=== PATIENT | male | born 1950 | race Caucasian/White ===

== ENCOUNTER 2016-10-05 13:32 | Outpatient (CLI) | payer OTHER | END 2016-10-05 13:33 | disposition home or self-care (01) | DX: G47.33 Obstructive sleep apnea (adult) (pediatric) (principal) ==

== ENCOUNTER 2017-01-17 09:17 | Outpatient (CLI) | payer OTHER | END 2017-01-17 09:18 | disposition home or self-care (01) | DX: G47.33 Obstructive sleep apnea (adult) (pediatric) (principal) ==

== ENCOUNTER 2017-03-08 14:16 | Outpatient (CLI) | payer OTHER | END 2017-03-08 14:17 | disposition home or self-care (01) | LOC: SC 14:16 | PROVIDERS: ATTEND Nurse Practitioner Family | DX: G47.33 Obstructive sleep apnea (adult) (pediatric) (principal) | CPT/HCPCS: 99212; 99214 ==

== ENCOUNTER 2017-05-12 10:46 | Outpatient (CLI) | payer OTHER | END 2017-05-12 10:47 | disposition home or self-care (01) | LOC: SC 10:46 | PROVIDERS: ATTEND Nurse Practitioner Family | DX: G47.33 Obstructive sleep apnea (adult) (pediatric) (principal) | CPT/HCPCS: 99212; 99214 ==

== ENCOUNTER 2017-06-13 13:29 | Outpatient (CLI) | payer OTHER | END 2017-06-13 13:30 | disposition home or self-care (01) | LOC: SC 13:29 | PROVIDERS: ATTEND Nurse Practitioner Family | DX: G47.33 Obstructive sleep apnea (adult) (pediatric) (principal) | CPT/HCPCS: 99212; 99213 ==

== ENCOUNTER 2017-08-09 13:20 | Outpatient (CLI) | payer OTHER | END 2017-08-09 13:21 | disposition home or self-care (01) | LOC: SC 13:20 | PROVIDERS: ATTEND Nurse Practitioner Family | DX: G47.33 Obstructive sleep apnea (adult) (pediatric) (principal) | CPT/HCPCS: 99212; 99215 ==

== ENCOUNTER 2017-09-22 13:53 | Outpatient (CLI) | payer OTHER | END 2017-09-22 13:54 | disposition home or self-care (01) | LOC: SC 13:53 | PROVIDERS: ATTEND Nurse Practitioner Family | DX: G47.33 Obstructive sleep apnea (adult) (pediatric) (principal) | CPT/HCPCS: 99212; 99214 ==

== ENCOUNTER 2017-11-24 13:22 | Outpatient (CLI) | payer OTHER | END 2017-11-24 13:23 | disposition home or self-care (01) | LOC: SC 13:22 | PROVIDERS: ATTEND Nurse Practitioner Family | DX: G47.33 Obstructive sleep apnea (adult) (pediatric) (principal); I10 Essential (primary) hypertension; I51.9 Heart disease, unspecified | CPT/HCPCS: 99214 ==

== ENCOUNTER 2017-12-21 22:45 | Outpatient (CLI) | payer OTHER | END 2017-12-21 22:46 | disposition home or self-care (01) | LOC: SC 22:45 | PROVIDERS: ATTEND Internal Medicine Pulmonary Disease | DX: G47.33 Obstructive sleep apnea (adult) (pediatric) (principal); G47.61 Periodic limb movement disorder | CPT/HCPCS: 95811 ==

== ENCOUNTER 2018-02-13 10:08 | Outpatient (CLI) | payer OTHER | END 2018-02-13 10:09 | disposition home or self-care (01) | LOC: SC 10:08 | PROVIDERS: ATTEND Internal Medicine Pulmonary Disease | DX: G47.33 Obstructive sleep apnea (adult) (pediatric) (principal) | CPT/HCPCS: 99212; 99213 ==

== ENCOUNTER 2018-05-01 09:16 | Outpatient (CLI) | payer MEDICARE, OTHER | END 2018-05-01 09:17 | disposition home or self-care (01) | LOC: SC 09:16 | PROVIDERS: ATTEND Internal Medicine Pulmonary Disease | DX: G47.33 Obstructive sleep apnea (adult) (pediatric) (principal) | CPT/HCPCS: 99213; G0463; 99212 ==

== ENCOUNTER 2019-09-27 06:43 | Outpatient (CLI) | payer MEDICARE, OTHER ==
--- NOTE | 2019-09-27 07:44 | Ultrasound Report ---
Reason: SCREENING FOR CARDIOVASCULAR DISORDERS Procedure Date: 09/27/2019 Accession Number: [id number] / [id number] Procedure: US - Aorta Screening CPT Code: Final Report FULL RESULT: EXAM: AORTIC DOPPLER ULTRASOUND EXAM DATE: 09/27/2019 06:48 AM. CLINICAL HISTORY: Screening for cardiovascular disorders. COMPARISON: None. TECHNIQUE: Real-time sonographic imaging of retroperitoneal vascular structures, including color-flow, Doppler flow and spectral analysis was performed by the sugar mill worker. Multiple equal opportunity representative static images were saved for review. FINDINGS: Aorta: The abdominal aorta was adequately visualized. No evidence for abdominal aortic aneurysm. Aorta: Proximal: Sagittal AP 2.5 cm. Mid: Transverse 2.1 x 2.2 cm. Distal: Transverse 2.0 x 2.1 cm. Caliber: WNL: Yes. Plaque visualized: Yes. Iliacs: Right Iliac: Transverse 1.4 x 1.4 cm. Left Iliac: Transverse 1.3 x 1.3 cm. Iliac Vessels: The visualized proximal common iliac arteries measure up to 1.4 cm transversely. Other: None. IMPRESSION: . No abdominal aortic aneurysm. RADIA
== END 2019-09-27 06:44 | disposition home or self-care (01) ==
LOC: DI 06:43
PROVIDERS: ATTEND Internal Medicine
DX: Z13.6 Encounter for screening for cardiovascular disorders (principal)
CPT/HCPCS: 76706

== ENCOUNTER 2019-10-30 17:00 | Outpatient (CLI) | payer MEDICARE, OTHER ==
--- NOTE | 2019-10-30 13:14 | SLEEP CARE CONSULTATION ---
Information from patient questionnaire entered by Jaylin Massey. I have reviewed and concur with the information entered by Jaylin Massey. This document represents the service I personally performed and the decisions made by me, Arsalan Portillo MD, [facility]. History of Present Illness Service Date and Time: 10/30/2019 1300 Previous diagnosis: Moderate, Obstructive Sleep Apnea-Hypopnea Syndrome AHI: 26.6 Reason for follow up: first compliance after device update, annual HPI additional information: To minimize the risk of COVID-19 exposure, the patient has requested and consented to this video telemedicine visit. The patient also agrees to having his insurance billed. HPI: Mr. Boucher was called today to follow up on the nasal CPAP therapy. He was diagnosed to have moderate obstructive sleep apnea-hypopnea syndrome. The patient wears a ResMed F20 full face mask. He continues to use the device nightly and all through the night. The compliance report shows usage in 29 nights out of the past 30 nights, averaging 7.3 hours a night. The > 4 hour compliance rate for the past 30 days is 97%. He complained of the mask hurting the bridge of his nose. He thinks that the pressure of 14 20 cmH2O is comfortable. On the CPAP therapy he notices improvement in his sleep quality, and that he wakes up feeling fresher in the morning and more awake/alert during the day. The average residual AHI is 2.6; and average air leak 2 L/minute. The 90th percentile pressure is 18.9 cmH2O. Allergies and Home Medications Drug allergies reviewed: Yes Home medication list reviewed: Yes Review of Systems Review of systems same as previous: Yes Physical Exam Height: 5 ft 11 in Impression and Plan IMPRESSION: 1. Obstructive Sleep Apnea-Hypopnea Syndrome, moderate, with the patient doing well on nasal CPAP therapy. He has excellent compliance and significant clinical improvement. The current pressure appears effective and comfortable. His mask hurts his nose. Overall, he is very satisfied with treatment and plans to continue with it long-term. He would like to switch away from [facility]. PLAN: 1. Continue with autoCPAP set at 14 - 20 cmH2O. 2. Try to lose weight 3. Try other full face masks that do not go over the bridge of his nose, e.g. F- 30, DreamWear full face, and AmaraView full face mask. 4. Prescription made for supplies so that he can [employer]. 5. Return in one year for follow up or earlier if there is any problem with the treatment. Visit Type: Telehealth Video Video Type: [place] Patient Location: Home Location of Provider: Home Patient agrees and consents to this telehealth visit type: Yes Time Spent with Patient (minutes): 15 Provider Statement: I spent 100% of the Telehealth Video Call with the patient with greater than 50% spent counseling the patient and coordination of care.
== END 2019-10-30 17:01 | disposition home or self-care (01) ==
LOC: SC 17:00
PROVIDERS: ATTEND Internal Medicine Pulmonary Disease
DX: G47.33 Obstructive sleep apnea (adult) (pediatric) (principal)

== ENCOUNTER 2020-08-11 11:31 | Outpatient (CLI) | payer MEDICARE, OTHER ==
--- NOTE | 2020-08-11 12:46 | SLEEP CARE CONSULTATION ---
Information from patient questionnaire entered by Beth Thacker. I have reviewed and concur with the information entered by Beth Thacker. This document represents the service I personally performed and the decisions made by me, Arsalan Portillo MD, [facility]. History of Present Illness Service Date and Time: 08/11/2020 1131 Previous diagnosis: Moderate, Obstructive Sleep Apnea-Hypopnea Syndrome AHI: 26.6 (in 2009) Reason for follow up: other (10 month) Equipment type: CPAP Equipment obtained from: [email or web address] Mask style: Full face Mask brand: Resmed Prior sleep studies: Yes Year and Where: 2009 - [facility] Sleep Type of Sleep Study: Polysomnography HPI additional information: HPI: Mr. Boucher was diagnosed to have moderate obstructive sleep apnea-hypopnea syndrome and returns today for follow up of CPAP therapy. The patient purchased the device from [email or web address] in [place] and was fitted with a full face mask. He has changed him mask from a [employer] full face mask to ResMed AirFit F20. He wears a full face mask because he breaths through his mouth most of the time. He continues to use the device nightly and all through the night. The compliance report shows that he uses the device 180 nights out of the past 180 nights, averaging 7.2 hours a night. He complains of right sided headache. He thinks that the pressure of 14 - 20 cmH2O is comfortable. On the CPAP therapy he notices improvement in his sleep quality, and that he wakes up feeling fresher in the morning and more awake/alert during the day. His notices no snore at all. [place] Sleepiness Scale score is 4. The average residual AHI is 7.8; and average time in large leak per day is 6 L/minute. The 90th percentile pressure is 19.9 cmH2O. CPAP Compliance Data - Data Reviewed with Patient Average duration of nightly device use: 7 hr 10 min Compliance rate %: 99 (180 days) Current pressure setting (cmH2O): 14-20 Average residual AHI: 7.8 Subjective Patient concerns: reports: mask discomfort, dry mouth, nose, throat Current pressure setting perceived as: comfortable Initial [place] Sleepiness Scale score: 4 (in 2017) Current [place] Sleepiness Scale score: 4 Allergies and Home Medications Drug allergies reviewed: Yes Home medication list reviewed: Yes Review of Systems Review of systems same as previous: Yes Physical Exam Vital signs obtained and entered by: To minimize the risk of COVID-19 exposure, detailed exam was not performed. Height: 5 ft 11 in Weight: 242 lb Body Mass Index: 33.7 BMI Classification: Obese Impression and Plan IMPRESSION: 1. Obstructive Sleep Apnea-Hypopnea Syndrome, moderate, with the patient continuing to do well on nasal CPAP therapy except for the headache which seems to be aggravated by the headgear. He has excellent compliance and significant clinical benefits. I recommend he try a ResMed F30 full face mask (he tried [employer] DreamWear full face mask but it hurt his nose). I will also lower the pressure range so that he would not have to tighten the mask too much. We also discussed alternative treatment optionsoral appliance therapy and Inspire therapy (hypoglossal nerve stimulation). PLAN: 1. AutoCPAP lowered to 8 - 14 cm H2O manually on the device. 2. Try to lose weight 3. Consider being evaluated for the Inspire therapy. Information provided. 4. Return in one month to recheck the efficacy of the lower pressure. Visit Type: In Office Provider Statement: I spent 100% of the Face to Face Visit with the patient with greater than 50% spent counseling the patient and coordination of care.
== END 2020-08-11 11:32 | disposition home or self-care (01) ==
LOC: SC 11:31
PROVIDERS: ATTEND Internal Medicine Pulmonary Disease
DX: G47.33 Obstructive sleep apnea (adult) (pediatric) (principal); E66.9 Obesity, unspecified; Z68.33 Body mass index [BMI] 33.0-33.9, adult
CPT/HCPCS: 99213; G0463; 99212

== ENCOUNTER 2020-09-22 10:14 | Outpatient (CLI) | payer MEDICARE, OTHER ==
--- NOTE | 2020-09-22 10:47 | SLEEP CARE CONSULTATION ---
Information from patient questionnaire entered by Beth Thacker. I have reviewed and concur with the information entered by Beth Thacker. This document represents the service I personally performed and the decisions made by me, Arsalan Portillo MD, [facility]. History of Present Illness Service Date and Time: 09/22/2020 1014 Previous diagnosis: Moderate, Obstructive Sleep Apnea-Hypopnea Syndrome AHI: 26.6 (in 2009) Reason for follow up: one month (with pressure change) Equipment type: CPAP Equipment obtained from: [facility] Mask style: Full face Prior sleep studies: Yes Year and Where: 2009 - [facility] Sleep Type of Sleep Study: Polysomnography HPI additional information: HPI: Mr. Boucher was diagnosed to have moderate obstructive sleep apnea-hypopnea syndrome and returns today for follow up of CPAP therapy after the pressure was lowered from 14 20 cmH2O to 8 14 cmH2O so that he would not have to wear the mask tightly and not have the headache. The patient purchased the device from [employer] in [place] and was fitted with a full face mask. He wears a full face mask because he breaths through his mouth most of the time. He continues to use the device nightly and all through the night. The compliance report shows that he uses the device 30 nights out of the past 30 nights, averaging 7.0 hours a night. He complains of right sided headache. He thinks that the pressure of 14 - 20 cmH2O is much more comfortable. The headache went away. On the CPAP therapy he notices improvement in his sleep quality, and that he wakes up feeling fresher in the morning and more awake/alert during the day. His notices no snore at all. [place] Sleepiness Scale score is 4. The average residual AHI is 11.5 (was 7.8); and average time in large leak per day is 1.9 (was 6)L/minute. The 90th percentile pressure is 13.9 cmH2O. CPAP Compliance Data - Data Reviewed with Patient Average duration of nightly device use: 7 Compliance rate %: 100 Current pressure setting (cmH2O): 8-14 Average residual AHI: 11.5 Subjective Current pressure setting perceived as: comfortable Initial [place] Sleepiness Scale score: 4 (in 2017) Current [place] Sleepiness Scale score: 2 Allergies and Home Medications Drug allergies reviewed: Yes Home medication list reviewed: Yes Review of Systems Review of systems same as previous: Yes Physical Exam Height: 5 ft 11 in Weight: 242 lb Body Mass Index: 33.7 BMI Classification: Obese Impression and Plan IMPRESSION: 1. Obstructive Sleep Apnea-Hypopnea Syndrome, moderate, with the patient continuing to do well on nasal CPAP therapy except for the headache which seems to be aggravated by the headgear. He has excellent compliance and significant clinical benefits. I recommend he try a ResMed F30 full face mask (he tried [employer] DreamWear full face mask but it hurt his nose). I will also lower the pressure range so that he would not have to tighten the mask too much. We also discussed alternative treatment optionsoral appliance therapy and Inspire therapy (hypoglossal nerve stimulation). PLAN: 1. AutoCPAP raised to 10 - 15 cm H2O manually on the memory card. 2. Try to lose weight 3. Consider being evaluated for the Inspire therapy. Information provided. 4. Return in one month to recheck the efficacy of the lower pressure. Counseling Topics: Weight control Visit Type: In Office Time Spent with Patient (minutes): 15 Provider Statement: I spent 100% of the Face to Face Visit with the patient with greater than 50% spent counseling the patient and coordination of care.
== END 2020-09-22 10:15 | disposition home or self-care (01) ==
LOC: SC 10:14
PROVIDERS: ATTEND Internal Medicine Pulmonary Disease
DX: G47.33 Obstructive sleep apnea (adult) (pediatric) (principal); E66.9 Obesity, unspecified; Z68.33 Body mass index [BMI] 33.0-33.9, adult
CPT/HCPCS: 99212; G0463

== ENCOUNTER 2020-11-24 09:08 | Outpatient (CLI) | payer MEDICARE, OTHER ==
--- NOTE | 2020-11-26 12:24 | SLEEP CARE CONSULTATION ---
Information from patient questionnaire entered by Beth Thacker. I have reviewed and concur with the information entered by Beth Thacker. This document represents the service I personally performed and the decisions made by me, Arsalan Portillo MD, [facility]. History of Present Illness Service Date and Time: 11/24/2020 0908 Previous diagnosis: Moderate, Obstructive Sleep Apnea-Hypopnea Syndrome AHI: 26.6 (in 2009) Reason for follow up: other (2 month fu) Equipment type: CPAP Equipment obtained from: [facility] Mask style: Full face Prior sleep studies: Yes Year and Where: 2009 - [facility] Sleep Type of Sleep Study: Polysomnography HPI additional information: HPI: Mr. Boucher was diagnosed to have moderate obstructive sleep apnea-hypopnea syndrome and returns today for follow up of CPAP therapy after the pressure was raised partially back up to 10 - [id number] for elevated residual AHI of 11.3 (lowered from 14 20 to 8 14 cmH2O earlier for his headache). The patient says his headache is almost gone but he also had a surgery to repair his root canal problem. He will also see a neurosurgeon soon. The residual AHI today went up to 13.3. CPAP Compliance Data - Data Reviewed with Patient Average duration of nightly device use: 7 hr 3 min Compliance rate %: 100 (60 days) Current pressure setting (cmH2O): 10-15 Average residual AHI: 13.3 Subjective Patient concerns: reports: dry mouth, nose, throat Current pressure setting perceived as: comfortable Initial [place] Sleepiness Scale score: 4 (in 2017) Current [place] Sleepiness Scale score: 1 Allergies and Home Medications Drug allergies reviewed: Yes Home medication list reviewed: Yes Review of Systems Review of systems same as previous: Yes Physical Exam Height: 5 ft 11 in Weight: 242 lb Body Mass Index: 33.7 BMI Classification: Obese Impression and Plan IMPRESSION: 1. Obstructive Sleep Apnea-Hypopnea Syndrome, moderate, with the patient continuing to do well on nasal CPAP therapy. The pressure is not quite effective but higher pressures require him to wear the mask tightly and to develop headache. I will leave the pressure as is. PLAN: 1. AutoCPAP left at 10 - 15 cm H2O 2. Try to lose weight. 3. Return for follow up in a year or earlier if there is any problem. Follow up with Sleep Care in: 1 year Follow up recommended for: Weight management Visit Type: In Office Time Spent with Patient (minutes): 15 Provider Statement: I spent 100% of the Face to Face Visit with the patient with greater than 50% spent counseling the patient and coordination of care.
== END 2020-11-24 09:09 | disposition home or self-care (01) ==
LOC: SC 09:08
PROVIDERS: ATTEND Internal Medicine Pulmonary Disease
DX: G47.33 Obstructive sleep apnea (adult) (pediatric) (principal); E66.9 Obesity, unspecified; Z68.33 Body mass index [BMI] 33.0-33.9, adult
CPT/HCPCS: 99212; G0463

== ENCOUNTER 2021-01-21 15:13 | Outpatient (CLI) | payer MEDICARE, OTHER ==
--- NOTE | 2021-01-21 16:36 | XRAY Report ---
PROCEDURE: Foot 3 View RT INDICATIONS: R FOOT PX TECHNIQUE: 2 views of the foot were acquired. COMPARISON: None FINDINGS: Bones: No fractures or dislocations. No suspicious bony lesions. Soft tissues: No tibiotalar joint effusion. Achilles tendon appears normal. IMPRESSION: No visible fractures. Reviewed by: Jovana Leyva MD on 01/21/2021 4:35 PM PDT Approved by: Jovana Leyva MD on 01/21/2021 4:35 PM PDT Station ID: [id number]
== END 2021-01-21 15:14 | disposition home or self-care (01) ==
LOC: DI.N 15:13
PROVIDERS: ATTEND Physician Assistant
DX: M79.671 Pain in right foot (principal)

== ENCOUNTER 2021-04-30 14:05 | Outpatient (CLI) | payer MEDICARE, OTHER ==
--- NOTE | 2021-05-01 08:23 | XRAY Report ---
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 COMPARISON: None. FINDINGS: SUPPORT DEVICES: None. LUNG/PLEURA: Mildly coarsened interstitial markings. No focal consolidation or pulmonary edema. No pleural effusion or space-occupying pneumothorax. MEDIASTINUM: The cardiomediastinal silhouette is within normal limits. BONES/SOFT TISSUES: No acute abnormality. IMPRESSION: 1.No acute cardiopulmonary abnormality. Reviewed by: Jamie Palomo MD on 05/01/2021 8:22 AM PDT Approved by: Jamie Palomo MD on 05/01/2021 8:22 AM PDT Station ID: [id number]
== END 2021-04-30 14:06 | disposition home or self-care (01) ==
LOC: DI.N 14:05
PROVIDERS: ATTEND Physician Assistant
DX: Z01.818 Encounter for other preprocedural examination (principal); G50.0 Trigeminal neuralgia; G47.33 Obstructive sleep apnea (adult) (pediatric); I25.10 Atherosclerotic heart disease of native coronary artery without angina pectoris

== ENCOUNTER 2021-05-18 16:42 | Outpatient (CLI) | payer MEDICARE, OTHER | END 2021-05-18 16:43 | disposition home or self-care (01) | LOC: COV 16:42 | PROVIDERS: ATTEND Neurological Surgery | DX: Z01.812 Encounter for preprocedural laboratory examination (principal); G50.0 Trigeminal neuralgia; Z20.822 Contact with and (suspected) exposure to COVID-19 ==

== ENCOUNTER 2021-10-19 14:25 | Outpatient (CLI) | payer MEDICARE, OTHER ==
[2021-10-19 22:47] VITALS: BP 143/97
--- NOTE | 2021-10-19 22:47 | SLEEP CARE CONSULTATION ---
Information from patient questionnaire entered by Henri Whitehead MA. I have reviewed and concur with the information entered by Henri Whitehead MA. This document represents the service I personally performed and the decisions made by me, Arsalan Portillo MD, [facility]. History of Present Illness Service Date and Time: 10/19/2021 1425 Previous diagnosis: Moderate, Obstructive Sleep Apnea-Hypopnea Syndrome AHI: 26.6 (in 2009) Reason for follow up: other (9 MONTH F/U , RESMED, ) Equipment type: CPAP Equipment obtained from: [facility] Mask style: Full face Prior sleep studies: Yes Year and Where: 2009 - [facility] Sleep Type of Sleep Study: Polysomnography HPI additional information: Mr. Boucher was diagnosed 4 years ago to have moderate obstructive sleep apnea- hypopnea syndrome and returns today for a follow up of CPAP therapy. He actually quit using his CPAP several months ago because he had a brain surgery and the wound was right underneath the CPAP strap. The surgery was also complicated by CSF leak. He would like to try oral appliance therapy. He has been to [facility] [place] and was informed that he needs a new sleep study and a prescription for a mandibular advancing device. Sleep Study - Results Type of Sleep Study: Polysomnography Prior sleep studies: Yes Year and Where: 2009 - [facility] Sleep CPAP Compliance Data - Data Reviewed with Patient Average duration of nightly device use: 7 HOURS 13 MINUTES Compliance rate %: 69 Current pressure setting (cmH2O): 14-20 Average residual AHI: 3.3 Central apnea: .6 Obstructive apnea: 1.4 Average large leak: 13.4 Subjective Initial [place] Sleepiness Scale score: 4 (in 2016) Current [place] Sleepiness Scale score: 4 (2021) Allergies and Home Medications Known drug allergies: No Drug allergies reviewed: Yes Home medication list reviewed: Yes Allergy and home medication list: Allergies No Known Drug Allergies Allergy (Verified 11/27/15 15:52) Review of Systems Review of systems same as previous: Yes (BRAIN SURG. 05/2021) Physical Exam Vital signs obtained and entered by: LEXII NOVOA Blood Pressure: 143/97 (PULSE 91, RESP 16, LEFT, ) Heart Rate: 86 O2 Saturation: 97 (N94) Height: 5 ft 11 in Weight: 203 lb Body Mass Index: 28.3 BMI Classification: Overweight Impression and Plan IMPRESSION: 1. Obstructive Sleep Apnea-Hypopnea Syndrome, moderate, unable to use CPAP because of his brain surgery. As recommended by his dentist, a new sleep study will be ordered. If the sleep-disordered breathing remains moderate, the oral appliance therapy is an option. If severe, the treatment is unlikely to be effective. PLAN: 1. Repeat in-laboratory polysomnography. 2. Try to lose weight 3. Return for a follow up after the sleep study. Visit Type: In Office Time Spent with Patient (minutes): 15 Provider Statement: I spent 100% of the Face to Face Visit with the patient with greater than 50% spent counseling the patient and coordination of care.
== END 2021-10-19 14:26 | disposition home or self-care (01) ==
LOC: SC 14:25
PROVIDERS: ATTEND Internal Medicine Pulmonary Disease
DX: G47.33 Obstructive sleep apnea (adult) (pediatric) (principal)
CPT/HCPCS: 99212; G0463

== ENCOUNTER 2021-11-05 19:37 | Outpatient (CLI) | payer MEDICARE, OTHER | END 2021-11-05 19:38 | disposition home or self-care (01) | LOC: SC 19:37 | PROVIDERS: ATTEND Internal Medicine Pulmonary Disease | DX: G47.33 Obstructive sleep apnea (adult) (pediatric) (principal); G47.61 Periodic limb movement disorder | CPT/HCPCS: 95810 ==

== ENCOUNTER 2021-11-23 09:10 | Outpatient (CLI) | payer MEDICARE, OTHER ==
[2021-11-23 09:52] VITALS: BP 121/72
--- NOTE | 2021-11-23 09:52 | SLEEP CARE CONSULTATION ---
Information from patient questionnaire entered by Henri Whitehead MA. I have reviewed and concur with the information entered by Henri Whitehead MA. This document represents the service I personally performed and the decisions made by me, Arsalan Portillo MD, [facility]. History of Present Illness Service Date and Time: 11/23/2021 0910 Initial [place] Sleepiness Scale score: 4 (in 2017) Current [place] Sleepiness Scale score: 2 (11/2021) Additional HPI information: HPI: Mr. Boucher returned for follow up of the sleep study he had on 11/05/2021. The polysomnography showed that despite moderate sleep fragmentation, the sleep architecture was normal. Respiratory monitoring showed severe obstructive sleep apnea-hypopnea (AHI = 40.6) associated with frequent arousals, oxyhemoglobin desaturation and moderate hypoxia (lara oxygen saturation of 69%). Baseline oxygen saturation was normal. The patient only slept supine during this study (supine AHI = 40.8; non-supine = 0.00). Snore was light to moderate in intensity. There was severe periodic leg movement of sleep not contributing to the sleep fragmentation. Cardiac rhythm was normal sinus rhythm with occasional premature ventricular contractions. No abnormal behavior (parasomnia) observed during the night. The patient was informed of these findings. I explained to him the pathophysiology behind obstructive sleep apnea. The patient quit using CPAP because of brain surgery which was complicated by CSF leak. He is now interested in the oral appliance therapy. Sleep Study - Results Type of Sleep Study: Polysomnography (F/U POLY, 11/05/21 [facility] Prior sleep studies: Yes Year and Where: 2009 - [facility] Sleep Allergies and Home Medications Known drug allergies: No Drug allergies reviewed: Yes Home medication list reviewed: Yes Allergy and home medication list: Allergies No Known Drug Allergies Allergy (Verified 11/27/15 15:52) Review of Systems Review of systems same as previous: Yes Physical Exam Vital signs obtained and entered by: LEXII NOVOA Blood Pressure: 121/72 (REP 18, PULSE 79, LEFT) Cuff size: wrist Heart Rate: 81 O2 Saturation: 96 (PAPER MASK) Height: 5 ft 11 in Weight: 214 lb Weight change since last visit: WAS IN HOSPITAL LOST WEIGHT, LOST TO 200 LBS, Body Mass Index: 29.8 BMI Classification: Overweight Impression and Plan IMPRESSION: 1. Obstructive Sleep Apnea-Hypopnea Syndrome, severe, associated with moderate hypoxemia and sleep fragmentation. The sleep-disordered breathing is worse this time because he only slept supine. The patient is unable to use CPAP. He will proceed to the oral appliance therapy through a local dentist. PLAN: 1. Prescription made for an oral appliance. 2. Attempt to lose weight and avoid alcohol consumption near bedtime. Return for a follow up after he is fitted with an oral. Prescriptions: Other (Oral appliance) Follow up with Sleep Care in: 6 months Follow up with: Other (Dentist) Visit Type: In Office Time Spent with Patient (minutes): 15 Provider Statement: I spent 100% of the Face to Face Visit with the patient with greater than 50% spent counseling the patient and coordination of care.
== END 2021-11-23 09:11 | disposition home or self-care (01) ==
LOC: SC 09:10
PROVIDERS: ATTEND Internal Medicine Pulmonary Disease
DX: G47.33 Obstructive sleep apnea (adult) (pediatric) (principal)
CPT/HCPCS: 99212; G0463

== ENCOUNTER 2023-06-20 10:35 | Outpatient (CLI) | payer MEDICARE, OTHER ==
--- NOTE | 2023-06-20 14:03 | SLEEP CARE CONSULTATION ---
Information from patient questionnaire entered by Sherrell Morejon. I have reviewed and concur with the information entered by Sherrell Morejon. This document represents the service I personally performed and the decisions made by me, Arsalan Portillo MD, [facility]. History of Present Illness Service Date and Time: 06/20/2023 1035 Previous diagnosis: Moderate, Obstructive Sleep Apnea-Hypopnea Syndrome AHI: 26.6 (in 2009) Reason for follow up: annual (LAST SEEN 11/2021) Equipment type: CPAP Equipment obtained from: [facility] Mask style: Full face Prior sleep studies: Yes Year and Where: 2009 - [facility] Type of Sleep Study: Polysomnography (F/U POLY, 11/05/21 [facility],) HPI additional information: Mr. Boucher returned for follow up of obstructive sleep apnea-hypopnea. He was diagnosed with severe obstructive sleep apnea-hypopnea here last with an AHI of 40.6 and lara oxygen saturation of 69%. He chose to try oral appliance therapy. He has a mandibular advancing device made by a local dentist. He still uses CPAP sporadically. The compliance/efficacy report shows usage in 34 nights out of the past year. The residual AHI is high at 17. Average air leak is 13 L/minute. He says that he uses the CPAP when he has to sleep in the same room with his . Otherwise, he uses the oral appliance. He is also interested in the Inspire therapy (hypoglossal nerve stimulation). Sleep Study - Results Type of Sleep Study: Polysomnography (F/U POLY, 11/05/21 [facility],) Prior sleep studies: Yes Year and Where: 2009 - [facility] Subjective Initial [employer] Sleepiness Scale score: 4 (in 2016) Current [employer] Sleepiness Scale score: 1 (06/20/23) Allergies and Home Medications Drug allergies reviewed: Yes Home medication list reviewed: Yes Allergy and home medication list: Allergies No Known Drug Allergies Allergy (Verified 06/17/23 08:56) Review of Systems Review of systems same as previous: Yes (NO CHANGE) Physical Exam Vital signs obtained and entered by: SHERRELL Esteban MA Blood Pressure: 132/81 (RIGHT ARM) Cuff size: regular Heart Rate: 76 O2 Saturation: 95 Height: 5 ft 11 in Weight: 236 lb Body Mass Index: 32.9 BMI Classification: Obese Impression and Plan IMPRESSION: 1. Obstructive Sleep Apnea-Hypopnea Syndrome, severe, presently treated with oral appliance therapy. He uses his CPAP on rare occasions. He seems to be a good candidate for the hypoglossal nerve stimulation therapy (his BMI is 33). Because oral appliance therapy is his primary treatment, we will need to access its efficacy. I will order a split-night polysomnogramfirst half without and the second half with his oral appliance. PLAN: 1. Schedule an in-laboratory polysomnography. The study will be split if the AHI is > 15. If split, the second half of the night will be with his oral appliance to test its effectiveness. 2. Attempt to lose weight and avoid alcohol consumption near bedtime. 3. Return for a follow up after the sleep study. 4. See ENT Dr. Ga Dickerson in [place] regarding Inspire therapy (hypoglossal nerve stimulation). Counseling Topics: Weight control Follow up with Sleep Care in: 1-2 months Plan: In-lab split night PSG Visit Type: In Office Time Spent with Patient (minutes): 15 Provider Statement: I spent 100% of the Face to Face Visit with the patient with greater than 50% spent counseling the patient and coordination of care.
[2023-06-20 14:06] VITALS: BP 132/81; O2SAT 95
== END 2023-06-20 10:36 | disposition home or self-care (01) ==
LOC: SC 10:35
PROVIDERS: ATTEND Internal Medicine Pulmonary Disease
DX: G47.33 Obstructive sleep apnea (adult) (pediatric) (principal); E66.9 Obesity, unspecified; Z68.32 Body mass index [BMI] 32.0-32.9, adult
CPT/HCPCS: 99212; G0463

== ENCOUNTER 2023-07-17 19:36 | Outpatient (CLI) | payer MEDICARE, OTHER | END 2023-07-17 19:37 | disposition home or self-care (01) | LOC: SC 19:36 | PROVIDERS: ATTEND Internal Medicine Pulmonary Disease | DX: G47.33 Obstructive sleep apnea (adult) (pediatric) (principal); R09.02 Hypoxemia; G47.61 Periodic limb movement disorder | CPT/HCPCS: 95810 ==

== ENCOUNTER 2023-08-01 11:23 | Outpatient (CLI) | payer MEDICARE, OTHER ==
--- NOTE | 2023-08-01 11:58 | SLEEP CARE CONSULTATION ---
Information from patient questionnaire entered by Almita Morejon. I have reviewed and concur with the information entered by Almita Morejon. This document represents the service I personally performed and the decisions made by me, Arsalan Portillo MD, [facility]. History of Present Illness Service Date and Time: 08/01/2023 1123 Initial [place] Sleepiness Scale score: 4 (in 2017) Current [place] Sleepiness Scale score: 1 (08/01/23) Additional HPI information: Mr. Boucher returned for follow up of the sleep study he had on 07/17/23. The polysomnography showed the following: DIAGNOSTIC: The patient had minimally reduced sleep efficiency. The sleep architecture was abnormal for sleep fragmentation and reduced amount of time spent in REM sleep. Respiratory monitoring showed very severe obstructive sleep apnea-hypopnea (AHI = 67.3) associated with frequent arousals, oxyhemoglobin desaturation and mild hypoxia (lara oxygen saturation of 81%). The patient only slept supine during this study. Snoring was loud in intensity. There was mild periodic limb movement of sleep not contributing to the sleep fragmentation. THERAPEUTIC: Oral appliance therapy resulted in significant improvement (AHI of 9,4 per hour on the pressure). There was supine REM sleep on the pressure. Baseline oxygen saturation was low (average oxygen saturation = 90% and 40 minutes spent with oxygen saturation at or below 88%). The patients sleep efficiency was slightly reduced. The sleep architecture was abnormal for sleep fragmentation and reduced amount of time spent in slow wave sleep (N3). There was severe periodic limb movement of sleep not contributing to the sleep fragmentation. Cardiac rhythm was normal sinus rhythm without significant arrhythmia. No abnormal behavior (parasomnia) observed during the night. The patient was informed of these findings. I explained to him that the oral appliance is quite effective. The patient says he uses his CPAP when sleeping in the same room with his because he still makes noises when wearing the oral appliance. Sleep Study - Results Type of Sleep Study: Polysomnography (F/U POLY, 11/05/21 [facility], SPLIT NIGHT COMPLETED 07/17/23) Prior sleep studies: Yes Year and Where: 2009 - [facility] Allergies and Home Medications Drug allergies reviewed: Yes Home medication list reviewed: Yes Allergy and home medication list: Allergies No Known Drug Allergies Allergy (Verified 08/01/23 11:09) Review of Systems Review of systems same as previous: Yes (NO CHANGE) Physical Exam Vital signs obtained and entered by: ALMITA Esteban MA Blood Pressure: 145/89 (LEFT ARM) Cuff size: regular Heart Rate: 72 O2 Saturation: 96 Height: 5 ft 11 in Weight: 232 lb 9.6 oz Body Mass Index: 32.4 BMI Classification: Obese Impression and Plan IMPRESSION: 1. Obstructive Sleep Apnea-Hypopnea Syndrome, very severe, associated with mild hypoxemia and sleep fragmentation. The patient plans to alternate between the oral appliance therapy and CPAP therapy. He likes the [employer] DreamWear full face mask we gave him. PLAN: 1. Continue with oral appliance therapy or CPAP therapy. 2. Attempt to lose weight and avoid alcohol consumption near bedtime. 3. Return for a follow up in a year or earlier if there is any problem. Follow up with Sleep Care in: 1 year Follow up recommended for: Weight management Visit Type: In Office Time Spent with Patient (minutes): 15 Provider Statement: I spent 100% of the Face to Face Visit with the patient with greater than 50% spent counseling the patient and coordination of care.
[2023-08-01 12:18] VITALS: BP 145/89; O2SAT 96
== END 2023-08-01 11:24 | disposition home or self-care (01) ==
LOC: SC 11:23
PROVIDERS: ATTEND Internal Medicine Pulmonary Disease
DX: G47.33 Obstructive sleep apnea (adult) (pediatric) (principal); E66.9 Obesity, unspecified; Z68.32 Body mass index [BMI] 32.0-32.9, adult
CPT/HCPCS: 99212; G0463